=== PATIENT | female | born 1950 | race Caucasian/White ===

== ENCOUNTER → 2019-09-22 10:42 | Outpatient (CLI) | payer OTHER ==
--- NOTE | 2019-09-25 16:48 | ST ---
PATIENT:LOLLY KHALIL MEDICAL RECORD: [id number] SEX: F LOCATION:[facility] ORDER #: ADMISSION DATE: 09/22/19 AGE OF PATIENT: 69 REFERRING PHYSICIAN: INTERPRETING PHYSICIAN: ETIENNE SOMMER MD DATE OF SERVICE: 09/22/2019 PROCEDURE: Nuclear stress test. INDICATION: Angina, shortness of breath, hypertension. She was exercised on standard Arben protocol for 6 minutes achieving 85% max target heart rate response with 27 mCi of sestamibi injected at peak stress, 9 mCi used previously for rest images. FINDINGS: Gated SPECT reveals preserved ejection fraction at 74% with good wall motion and thickening and brightening throughout all segments. SPECT imaging Cardiolite was used as myocardial fusion agent. There is homogeneous uptake throughout all segments at rest and stress with no evidence of inducible ischemia or previous infarction. OVERALL IMPRESSION: 1. This is a normal nuclear stress test with no evidence of inducible ischemia or previous infarction. 2. Gated SPECT reveals a preserved ejection fraction at 74%. In this patient with ongoing symptomatology, the current scan does not suggest the presence of hemodynamically significant coronary artery disease. Evaluate noncardiac etiology of chest pain. TRANSINT:[id number] Voice Confirmation ID: [id number] DOCUMENT ID: [id number] ETIENNE SOMMER MD at 1648 CC: JEF DANIEL MD [id number] DICTATION DATE: 09/23/19 0904 EXCHANGE TELLER: 09/24/19 0714 DEP CLI 09/22/[address] [id number]
--- NOTE | 2019-09-25 16:48 | EC ---
PATIENT:LOLLY KHALIL DATE OF SERVICE: 09/22/19 SEX: F MEDICAL RECORD: [id number] DATE OF : 48 LOCATION:[facility] AGE OF PATIENT: 69 ADMISSION DATE: 09/22/19 REFERRING PHYSICIAN: INTERPRETING PHYSICIAN: ETIENNE ENGEL MD ECHOCARDIOGRAM REPORT ECHO CHARGES 4 ECHO COMPLETE Date: 09/22/19 CLINICAL DIAGNOSIS: AFIB/ANGINA/DYSPNEA ON EXERTION ECHOCARDIOGRAPHIC MEASUREMENTS (adult normal given) AC root (d.<3.7cm) 3.2 cm LV Septum d (<1.2 cm> 1.2 cm Valve Excursion 1.6 cm LV Septum (systole) 1.4 cm Left Atria (s.<4.0cm> 4.2 cm LVPW d(<1.2cm) 1.3 cm RV (d.<2.3cm) 3.2 cm LVPW (sytole) 1.5 cm LV diastole(<5.6CM) 3.9 cm MV E-F(>70mm/sec) cm LV systole 2.2 cm LVOT Diameter 2.0 cm MV exc.(>10mm) 1.5 cm Est.ejection fraction (50-75%) % DOPPLER: LVIT cm/sec A 64.0 cm/sec E 57.0 cm/sec LA cm/sec RVSP 21 mmHg LVOT 87 cm/sec AOP1/2T m/s Asc. Ao 103 cm/sec RVOT 70 cm/sec RA cm/sec PA 80 cm/sec AV Gradient Peak 4.26 mmHg AV Mean 2.14 mmHg AV Area 3.0 cm MV Gradient Peak 2.62 mmHg MV Mean 0.68 mmHg MV Area cm COMMENTS: Paper Twister Tender: 2 ZACH MEJIA Pattern Changer And Repairer: 1 Dr. Engel TAPE# PACS Pericardial Effusion N DATE OF SERVICE: ECHOCARDIOGRAM FINDINGS: 1. Left ventricular chamber size is within normal limits. Left ventricular systolic function is normal at 60% to 65%. 2. Left atrium is enlarged at 4.2 cm. Right atrium and right ventricular chamber sizes are within normal limits. 3. Valvular structures have normal structure and motion. ECHOCARDIOGRAM REPORT [id number] LOLLY KHALIL 4. Doppler interrogation reveals mild mitral regurgitation, trace tricuspid regurgitation, no other valvular insufficiency or stenosis. Pulmonary systolic pressure estimated at 21 mmHg. 5. No evidence of pericardial effusion or left ventricular thrombus. TRANSINT:[id number] Voice Confirmation ID: [id number] DOCUMENT ID: [id number] ETIENNE ENGEL MD at 1648 CC: [id number] DICTATION DATE: 09/22/19 1336 DELIVERY ROOM SUPERVISOR: 09/22/19 2306 DEP CLI 09/22/19 [place] [id number] [place] [id number]
== END | disposition home or self-care (01) ==
LOC: D.HCCECHO 10:42
PROVIDERS: ATTEND Internal Medicine Interventional Cardiology
DX: I48.0 Paroxysmal atrial fibrillation (principal); I20.9 Angina pectoris, unspecified